=== PATIENT | male | born 1995 | race Two or more races ===

== ENCOUNTER 2017-12-25 03:53 | Emergency (ER) | payer OTHER ==
[~2017-12-25] VITALS: Ht 172.7 cm; Wt 86.2 kg
[2017-12-25 04:00] VITALS: Ht 172.7 cm; Wt 86.2 kg
[2017-12-25 04:32] VITALS: BP 124/78
== END 2017-12-25 04:32 | disposition home or self-care (01) ==
LOC: ED 03:53
DX: J02.9 Acute pharyngitis, unspecified (principal)
CPT/HCPCS: J1100; J1885